=== PATIENT | male | born 1995 | race Caucasian/White ===

== ENCOUNTER 2018-06-05 17:11 | Inpatient (IN) | payer OTHER ==
[2018-06-05] MEDS ORDERED: Acetaminophen TAB* 325 MG PO PRN (17:42)
[2018-06-05] MEDS ORDERED: Nicotine Inhaler* 10 MG AMP INH PRN (17:42)
[2018-06-05] MEDS ORDERED: LORazepam TAB(*) 1 MG PO ONE (17:43)
--- NOTE | 2018-06-05 17:48 | ED ---
Psychiatric Complaint - HPI Summary HPI Summary: The pt is a 23 y/o male brought in by the police [place] [facility] [place]/o SI with 43 different plans. His father called the police. He denies SI at bedside but reports that he has a wish. The pt says that he has been suicidal since he ad 11. He notes daily consumption of 14 beer bottles a day, lack of which leads to withdrawal. He last drunk beer at 12:43 hrs today. He reports that the sx are aggravated by living in the home as a pedophile father and a psychopath mother. His PCP is Dr. Villa Merritt MD. Home Medications Medication Instructions Recorded Confirmed Type Escitalopram (NF) [Lexapro 10 mg 10 mg PO DAILY 06/05/18 06/05/18 History (NF)] - History Of Current Complaint Chief Complaint: EDMentalHealth Time Seen by Provider: 06/05/18 17:24 Hx Obtained From: Patient Onset/Duration: Other - Acute on chronic Timing: Constant Aggravating Factor(s): Recent Stress - Family situation Alleviating Factor(s): Nothing, Other Related History: Positive For: Prior Psychiatric Issues Has Suicidal: Reports: Thoughts, With A Plan Has Homicidal: Denies: Thoughts, With A Plan - Allergies/Home Medications Allergies/Adverse Reactions: Allergies Allergy/AdvReac Type Severity Reaction Status Date / Time No Known Allergies Allergy Verified 06/05/18 17:28 Home Medications: Home Medications Escitalopram (NF) [Lexapro 10 mg (NF)] 10 mg PO DAILY 06/05/18 [History Confirmed 06/05/18] PMH/Surg Hx/FS Hx/Imm Hx Previously Healthy: No Endocrine/Hematology History: Denies: Hx Diabetes Cardiovascular History: Denies: Hx Hypercholesterolemia, Hx Hypertension Respiratory History: Denies: Hx Asthma Sensory History: Denies: Hx Deafness Psychiatric History: Reports: Hx Depression - Cancer History Cancer Type, Location and Year: None reported - Surgical History Surgery Procedure, Year, and Place: None reported Infectious Disease History: No Infectious Disease History: Denies: Hx Clostridium Difficile, Hx Shingles, Hx Tuberculosis, Hx Known/ Suspected VRE, Hx Known/Suspected VRSA, Traveled Outside the [place] in Last 30 Days - Family History Known Family History: Positive: Other - Psychiatric problems Negative: Cardiac Disease, Hypertension, Diabetes - Social History Occupation: Unemployed Lives: With Family Alcohol Use: Daily - 14 beers/ day Substance Use Type: Reports: None Smoking Status (MU): Never Smoked Tobacco Review of Systems Negative: Fever Positive: no symptoms reported Psychological: Other - Positive: SI with plans Positive: Depressed All Other Systems Reviewed And Are Negative: Yes Physical Exam - Summary Physical Exam Summary: Constitutional: Well-developed, Well-nourished, Alert. (-) Distressed Skin: Warm, Dry HENT: Normocephalic; Atraumatic Eyes: Conjunctiva normal Neck: Musculoskeletal ROM normal neck. (-) JVD, (-) Stridor, (-) Tracheal deviation Cardio: Rhythm regular, elevated heart rate, Heart sounds normal; Intact distal pulses; The pedal pulses are 2+ and symmetric. Radial pulses are 2+ and symmetric. (-) Murmur Pulmonary/Chest wall: Effort normal. (-) Respiratory distress, (-) Wheezes, (-) Rales Abd: Soft, (-) epigastric tenderness, (-) Distension, (-) Guarding, (-) Rebound Musculoskeletal: (-) Edema Lymph: (-) Cervical adenopathy Neuro: Alert, Oriented x3 Psych: Mood and affect Normal Triage Information Reviewed: Yes Vital Signs On Initial Exam: Initial Vitals Temp Pulse Resp BP Pulse Ox 97.9 F 121 17 161/108 98 06/05/18 17:14 06/05/18 17:14 06/05/18 17:14 06/05/18 17:14 06/05/18 17:14 Vital Signs Reviewed: Yes Diagnostics - Vital Signs Vital Signs Temp Pulse Resp BP Pulse Ox 06/05/18 17:14 97.9 F 121 17 161/108 98 - Laboratory Result Diagrams: 06/05/18 17:46 06/05/18 17:46 Lab Statement: Any lab studies that have been ordered have been reviewed, and results considered in the medical decision making process. Re-Evaluation - Re-Evaluation First Eval Re-Evaluation Time: 22:57 Comment: Patient was medically cleared for MHE. Second Eval Re-Evaluation Time: 06:22 Comment: 621 Candelario Aggarwal states that upon being told that he will be involuntarily admitted, patient stated that he wants to be restrained or he will hurt himself. Patient will be restrained. Patient stated to Dr. Mckinley that admission has "Thrown me over the edge". He additionally requests sedation. Course/Dx - Course Course Of Treatment: A 23 year-old M presents to the ED with a CC of SI with 43 different plans. His father called the police. He denies Si at bedside but reports that he has a wish. He notes daily consumption of 14 beer bottles a day, lack of which leads to withdrawal. A physical exam revealed elevated heart rate. In the ED course, pt was given Alprazolam 0.5 mg PO and Lorazepam 4 mg PO which improved the symptoms. Patient will be signed out to Dr. Elías Mendiola at the change of shift with a Dx of suicidal ideations. Allergies noted. - Differential Dx/Clinical Impression Provider Diagnosis: Depression Discharge - Sign-Out/Discharge Documenting (check all that apply): Sign-Out Patient Signing out patient TO: Marlena Mckinley - 22:00 hrs - Discharge Plan Condition: Good Disposition[place]AT[facility] [place] [place]illing Disposition and Condition Condition: GOOD Disposition: Psychiatric Facility [facility] - Attestation Statements Document Initiated by Scribe: Yes Documenting Scribe: Barby Sharma Provider For Whom Scribe is Documenting (Include Credential): Dr. Hubert Turner MD Scribe Attestation: Barby Blandon scribed for Dr. Hubert Turner MD on 06/07/18 at 1130. Scribe Documentation Reviewed: Yes Provider Attestation: The documentation as recorded by the scribeBarby accurately reflects the service I personally performed and the decisions made by ut, Dr. Hubert Turner MD Status of Scribe Document: Viewed
[2018-06-05] MEDS ORDERED: ALPRAZolam TAB* 0.5 MG PO ONE (17:55)
[2018-06-05 18:10] LABS: ABS Basophils 0.1 10^3/ul (0-0.2); ABS Eosinophils 0.1 10^3/ul (0-0.6); ABS Lymphocytes 1.4 10^3/ul (1.0-4.8); ABS Monocytes 0.2 10^3/ul (0-0.8); ABS Neutrophils 1.7 10^3/ul (1.5-7.7); ABS Nucleated RBC 0 10^3/ul; Eosinophil % 2.9 %; Hematocrit 55 % (42-52); Lymphocyte % 40.5 %; Mean Corpuscular HGB Conc 35 g/dl (31-36); Mean Corpuscular Hemoglobin 33 pg (27-31); Mean Corpuscular Volume 94 fL (80-94); Mean Platelet Volume 8.1 fL (7.4-10.4); Nucleated Red Blood Cells % 0.1; Platelet Count 296 10^3/ul (150-450); Red Blood Count 5.83 10^6/ul (4.00-5.40); Red Cell Distribution Width 13 % (10.5-15); White Blood Count 3.5 10^3/ul (3.5-10.8)
[2018-06-05 18:22] LABS: EGFR Non-African American 70.3 (>60)
[2018-06-05 18:22] LABS: Urine Appearance Clear; Urine Blood Negative (Negative); Urine Color Yellow; Urine Ketones Negative (Negative); Urine Protein Negative (Negative); Urine Specific Gravity 1.009 (1.010-1.030); Urine Urobilinogen Negative (Negative)
--- NOTE | 2018-06-05 22:58 | ED ---
Progress - Progress Note Progress Note: Patient is received as a sign out from Dr. Turner to Dr. Mckinley at 2200 pending medical clearance and MHE of this patient. 2257 - Patient is medically cleared for MHE. 614 - Dr. Richter has reviewed the patient's case, patient will be involuntarily admitted to hospital. Dr. Mckinley is agreeable. Re-Evaluation - Re-Evaluation First Eval Re-Evaluation Time: 22:57 Comment: Patient was medically cleared for MHE. Second Eval Re-Evaluation Time: 06:22 Comment: 621 Candelariojase Aggarwal states that upon being told that he will be involuntarily admitted, patient stated that he wants to be restrained or he will hurt himself. Patient will be restrained. Patient stated to Dr. Mckinley that admission has "Thrown me over the edge". He additionally requests sedation. Course/Dx - Course Course Of Treatment: Patient is received as a sign out from Dr. Turner to Dr. Mckinley at 2200 pending medical clearance and MHE of this patient. 7 - Patient is medically cleared for MHE. 614 - Dr. Richter has reviewed the patient's case, patient will be involuntarily admitted to hospital. Dr. Mckinley is agreeable. 621 Candelario Aggarwal states that upon being told that he will be involuntarily admitted, patient stated that he wants to be restrained or he will hurt himself. Patient will be restrained. Patient stated to Dr. Mckinley that admission has "Thrown me over the edge". He additionally requests sedation. Patient was given Ativan 2 mg, Haldol 5 mg, and Benadryl 50 mg. - Diagnoses Provider Diagnoses: Depression - Provider Notifications Discussed Care Of Patient With: John Richter Time Discussed With Above Provider: 06:15 Instructed by Provider To: Other - 614 - Dr. Richter has reviewed the patient' s case, patient will be involuntarily admitted to hospital. Dr. Mckinley is agreeable. Discharge - Sign-Out/Discharge Documenting (check all that apply): Patient Departure - admit - Discharge Plan Condition: Good Disposition: [facility]CHIATRIC FACILITY[place] Referrals: René Driver MD [Primary Care Provider] - - Attestation Statements Document Initiated by Scribe: Yes Documenting Scribe: MARY BETH PINEDA Provider For Whom Scribe is Documenting (Include Credential): ABIMAEL MCKINLEY MD Scribe Attestation: I, MARY BETH PINEDA , scribed for ABIMAEL MCKINLEY MD on 06/06/18 at 0630. Status of Scribe Document: Ready
[2018-06-06] MEDS ORDERED: LORazepam INJ* 2 MG/ML 1 ML VIAL IM ONE (06:29)
[2018-06-06] MEDS ORDERED: Haloperidol INJ IV/IM* 5 MG/ML AMP IM ONE (06:29)
[2018-06-06] MEDS ORDERED: diPHENhydraMINE PO* 25 MG PO ONE (06:30)
[2018-06-06] MEDS ORDERED: diPHENhydraMINE PO* 50 MG ONE (06:30)
[2018-06-06] MEDS ORDERED: Haloperidol TAB* 5 MG ONE (06:30)
[2018-06-06] MEDS ORDERED: LORazepam TAB(*) 1 MG ONE (06:30)
[2018-06-06] MEDS ORDERED: Al Hydrox/Mg Hydrox/Simet LIQ* 30 ML UDC PO PRN (08:34)
[2018-06-06] MEDS ORDERED: Acetaminophen TAB* 325 MG PO PRN (08:34)
[2018-06-06] MEDS ORDERED: LORAZEPAM IV PUSH SCH (09:00)
[2018-06-06] MEDS ORDERED: Multivitamins/Minerals TAB PO SCH (09:00)
[2018-06-06] MEDS ORDERED: Thiamine TAB* 100 MG TAB PO SCH (09:00)
[2018-06-06] MEDS ORDERED: Folic Acid TAB* 1 MG PO SCH (09:00)
[2018-06-06] MEDS ORDERED: THIAMINE IM ONE (09:00)
[2018-06-06] MEDS: CMCS:Escitalopram (NF) 10 MG TAB PO SCH (11:38)
[2018-06-06] MEDS: Vitamin THERAPEUTIC TAB PO SCH (11:38)
[2018-06-06] MEDS: FOLIC ACID 1 MG TAB DAILY PO SCH (11:38)
[2018-06-06] MEDS ORDERED: Ibuprofen TAB* 600 MG PO PRN (14:25)
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
[2018-06-06] MEDS: Lithium Carbonate TAB* 300 MG PO SCH (20:29)
[2018-06-07] MEDS: FOLIC ACID 1 MG TAB DAILY PO SCH (09:50)
[2018-06-07] MEDS: Vitamin THERAPEUTIC TAB PO SCH (09:50)
[2018-06-07] MEDS: Lithium Carbonate TAB* 300 MG PO SCH ×2 (09:50→20:00)
[2018-06-07] MEDS: CMCS:Escitalopram (NF) 10 MG TAB PO SCH (09:50)
[2018-06-07] MEDS: THIAMINE HCL 100 MG PO SCH (09:51)
[2018-06-07] MEDS: LORazepam 1 MG TAB PER WAM PROTOCOL PO SCH ×2 (11:08→20:00)
--- NOTE | 2018-06-07 20:44 | PN ---
Subjective - Subjective Date of Service: 06/07/18 Service Type: 15458 Hosp care 15 min low complexity Subjective: Nico is irritable, but easy enough to talk to. We discuss the use of lithium, which he states he understands. He would really like to go home and states that he never WANTED to kill himself, he was just thinking about it and during a drunken tirade her didn't make that clear. Thus, his father misinterpreted what he said. On the unit, he has consistently denied that he wanted to suicide; rather, he is oddly proud of how clever he is to think of so many methods to end his life. Objective - Appearance Appearance: Thin Framed Dysmorphic Features: No Hygiene: Mal-odorous Grooming: Disheveled - Behavior Psychomotor Activities: Normal Exhibits Abnormal Movement: No - Attitude and Relatedness Attitude and Relatedness: Dismissive Eye Contact: Good - Speech Quality: Unpressured Latencies: Normal Quantity: Terse - Mood Patient's Decription of Mood: "Irritable" - Affect Observed Affect: Constricted Affect Consistent with: Dysphoria - Thought Process Patient's Thought Process: Coherent, Goal Directed Thought Content: Yes Passive Wish, No Suicidal Planning, No Homicidal Ideation, No Paranoid Ideation - Sensorium Experiencing Hallucinations: No, Sensorium is Clear Type of Hallucinations: Visual: No, Auditory: No, Command: No - Level of Consciousness Level of Consciousness: Agitated Orientation: Yes Intact, Yes Orientated to Time, Yes Orientated to Place, Yes Orientated to Person - Impulse Control Impulse Control: Tenuous - Insight and Judgement Insight and Judgement: Fair - Group Participation Particating in Group Activities: Yes - Medication Management Medication Management Adherence: Yes Assessment - Assessment Merits Inpatient Hospitalization: For Immediate Safety, For Discharge Planning Inpatient DSM-V Dx: F10.94 Clinical Impression: Nico is a 23-year-old man who lives with his father and is currently unemployed due to a neck injury who drinks daily until intoxication. During one of these intoxicated times, he stated to his father that he was going to end his life. His father called law enforcement and he was brought to the hospital. Plan - Plan Treatment Plan: Name: NICO MARCOS Birthdate: 1995 [id number] Continued Medication Management: Different Medication Medications: Current Medications Acetaminophen (Tylenol Tab*) 650 mg PO Q4H PRN PRN Reason: PAIN or TEMP > 101 F Al Hydrox/Mg Hydrox/Simethicone (Maalox Plus*) 30 ml PO Q4H PRN PRN Reason: INDIGESTION Escitalopram Oxalate (Lexapro (Nf)) 10 mg PO DAILY [facility] Last Admin: 06/07/18 09:50 Dose: 10 mg Folic Acid (Folvite Tab*) 1 mg PO DAILY [facility] Last Admin: 06/07/18 09:50 Dose: 1 mg Ibuprofen (Motrin Tab*) 600 mg PO Q6H PRN PRN Reason: PAIN [place] Carbonate ([place] Carbonate Tab*) 300 mg PO BID [facility] Last Admin: 06/07/18 20:00 Dose: 300 mg Lorazepam (Ativan Tab(*)) 0 mg PO .PER [facility] PARAMETERS [facility] Last Admin: 06/07/18 20:00 Dose: 2 mg Lorazepam (Ativan Inj*) 0 mg IV PUSH .PER [facility] PROTOCOL [facility] Multivitamins (Theragran Tab*) 1 tab PO DAILY [facility] Last Admin: 06/07/18 09:50 Dose: 1 tab Thiamine HCl (Vitamin B-1 Tab*) 100 mg PO DAILY [facility] Last Admin: 06/07/18 09:51 Dose: 100 mg - Discharge Plan Discharge Plan: Drug/Alcohol Rehab Additional Comments: Nico asserts that he doesn't need to be here and he is convincing and logical in his arguments. He would benefit from the positive socialization, but as far as immediate safety goes, he will benefit from outpatient referrals to the [facility].
[2018-06-08] MEDS: FOLIC ACID 1 MG TAB DAILY PO SCH (08:26)
[2018-06-08] MEDS: THIAMINE HCL 100 MG PO SCH (08:26)
[2018-06-08] MEDS: Vitamin THERAPEUTIC TAB PO SCH (08:26)
[2018-06-08] MEDS: CMCS:Escitalopram (NF) 10 MG TAB PO SCH (08:27)
[2018-06-08] MEDS: Lithium Carbonate TAB* 300 MG PO SCH (08:27)
[2018-06-08 11:18] VITALS: BP 146/130
--- NOTE | 2018-06-10 03:41 | DS ---
CC: [facility]; [facility]; Dr. Driver * DISCHARGE SUMMARY: DATE OF ADMISSION: 06/06/18 DATE OF DISCHARGE: 06/08/18 PROVIDER: Nazanin Estrada NP, in Psychiatry. SUPERVISING PHYSICIAN: Dr. Sharath Hathaway.* (DICTATED BY NAZANIN ESTRADA NP) DIAGNOSES: [place] I: Major depressive disorder. [place] II: Deferred. CONDITION AT THE TIME OF DISCHARGE: Improved, psychiatrically cleared, stable. Nico participated in groups and was social with some peers. His father is agreeable to his discharge. He has done well here psychiatrically. We started lithium, which he tolerated well. He will be attending [facility]. MENTAL STATUS EXAMINATION: At the time of discharge, Nico is calm, cooperative, and makes good eye contact. He is alert and oriented x3. His grooming is adequate. His speech pace is rapid. His thought processes are logical. He is not psychotic or delusional. He denies AH, VH, SI, and HI. His insight is fair. His judgment is good. He is willing to follow up and he is urged to see a therapist as well as Alcohol Counsel[facility]. DISCHARGE INSTRUCTIONS TO THE PATIENT: A. Medications: 1. Escitalopram 10 mg. He already has that from Dr. Driver. 2. We started lithium carbonate 300 mg twice a day to reduce suicidal ideation , potentially improve depression, and with an idea toward reducing mood swings. B. Diet is regular. C. Activities: As tolerated. Nico is a nonsmoker and there are no studies pending at the time of discharge. D. Followup appointments: He has an appointment with the [facility] on 06/12/18, at 9:30. He has an intake appointment on 06/13/18, at 1:15 at [facility] and he is encouraged to follow up with Dr. Driver as needed. E. Substance abuse followup: He has been referred to the [facility]. No medication was prescribed for his substance abuse at this time. HOSPITAL COURSE: Part A: Chief complaint: "I've had depression and suicidal thoughts for 12 years. My dad was arrested because he is a pedophile and my mom is a psychopath." The patient is a 23-year-old single white man with a history of depression and suicidal ideation dating back to age 11 or before, who arrives , brought in by emergency services and is on a 9.39 status following a "drunken rant" that he does not remember, but it caused his father to call the police. Nico is a tall, very thin man with dark hair, hagan and the hair is long. He states he has 43 plans to end his life. He states these started occurring when he was 11 years old and he states that when he was 16, his dad was arrested for possessing child pornography. His father's name is Hilario. At that point, Nico dropped out of high school to take care of his father. He had plans to leave [facility], but he was brought back in to caring for his father. His sleep is poor perhaps due to the alcohol that he drinks all day every day. He is interested in little. He feels guilty about not taking care of his father; therefore, he does take care of his father. His appetite is small. He is agitated and he has suicidal ideation. Part B: Psychiatric treatment was rendered. Nico was admitted to the adult behavioral unit and placed on 15-minute checks for safety. Despite Nico's irritability, he did well on the unit and went to groups. He interacted with peers very well. He tolerated the addition of lithium and understood its purpose. We did not obtain a level as he had only taken it for approximately a day and a half. He is not on an antipsychotic. I did meet his father who brought him clothes to change in to upon his discharge. No consults were entered for Nico. He is improved. He is clear that he has no suicidal intent. He almost angrily describes that that has always been the case and that there was a miscommunication regarding his inpatient stay. Nevertheless, his affect has brightened significantly. He is eager to leave. He wants to go home. He is happy to go and he is pleasant when he says goodbye. NAZANIN ESTRADA NP [id number]/[facility] #: [id number] MADHAVI
== END 2018-06-08 13:26 | disposition home or self-care (01) | DRG 754 ==
LOC: ED 17:11 → BSU 06-06 08:29
PROVIDERS: ADMIT Psychiatry & Neurology Psychiatry; ATTEND Psychiatry & Neurology Psychiatry
DX: F32.9 Major depressive disorder, single episode, unspecified (principal); F10.94 Alcohol use, unspecified with alcohol-induced mood disorder; R45.851 Suicidal ideations; Z62.812 Personal history of neglect in childhood; Z62.819 Personal history of unspecified abuse in childhood; Z81.8 Family history of other mental and behavioral disorders; Z56.0 Unemployment, unspecified
CPT/HCPCS: 36415; 80053; 80307; 80320; 80329; 81003; 84443; 85025; 99222; 99231; 99238; 99285; A9270-GY; G0480; J3411